=== PATIENT | male | born 1995 | race African-American/Black ===

== ENCOUNTER 2019-08-25 14:26 | Emergency (ER) | payer OTHER ==
[2019-08-25 14:32] VITALS: BP 154/98; PULSE 127; TEMP 98.2; BMI 37.5
--- NOTE | 2019-08-25 15:12 | PDOC ---
History of Present Illness - General Chief Complaint: Cold Symptoms Stated Complaint: FLU Time Seen by Provider: 08/25/19 15:03 - History of Present Illness Initial Comments: 08/25/19 15:11 24-year-old male with a past medical history of diabetes presents for flulike symptoms x2 days Past History - Past Medical History Allergies/Adverse Reactions: Allergies Allergy/AdvReac Type Severity Reaction Status Date / Time No Known Allergies Allergy Verified 08/25/19 14:30 CVA: No COPD: No CHF: No DVT: No - Immunization History Immunization Up to Date: No - Psycho Social/Smoking Cessation Hx Smoking History: Never smoked Information on smoking cessation initiated: No Hx Alcohol Use: No Drug/Substance Use Hx: No Review of Systems - Review of Systems Constitutional: Yes: Chills, Fever, Malaise, Night Sweats HEENTM: Yes: Nose Congestion Respiratory: Yes: Cough *Physical Exam - Vital Signs Last Vital Signs Temp Pulse Resp BP Pulse Ox 98.2 F 127 H 16 154/98 98 08/25/19 14:30 08/25/19 14:30 08/25/19 14:30 08/25/19 14:30 08/25/19 14:30 - Physical Exam 08/25/19 15:11 GENERAL: The patient is awake, alert, and fully oriented, in no acute distress. HEAD: Normal with no signs of trauma. EYES: sclera anicteric, conjunctiva clear. ENT: Ears normal tympanic membranes normal oropharynx clear uvula midline NECK: Normal range of motion LUNGS: Breath sounds equal, clear to auscultation bilaterally. No wheezes, and no crackles. HEART: S1 and S2 without murmur, rub or gallop. ABDOMEN: Soft, nontender, normoactive bowel sounds. No guarding, no rebound. No masses. EXTREMITIES: Normal range of motion, no edema. No clubbing or cyanosis. No cords, erythema, or tenderness. NEUROLOGICAL: Cranial nerves II through XII grossly intact. Normal speech, normal gait. PSYCH: Normal mood, normal affect. SKIN: Warm, Dry, normal turgor, no rashes or lesions noted. Medical Decision Making - Medical Decision Making 08/25/19 16:00 Influenza swab negative most likely viral upper respiratory infection supportive care follow-up with primary care physician. Discharge - Discharge Information Problems reviewed: Yes Clinical Impression/Diagnosis: Viral URI with cough Condition: Stable Disposition: HOME - Admission No - Follow up/Referral Referrals: Kya Eddy MD [Primary Care Provider] - - Patient Discharge Instructions Patient Printed Discharge Instructions: DI for Viral Upper Respiratory Infection -- Adult Additional Instructions: Tylenol Motrin for any fevers. Return to the emergency room for worsening symptoms. Without fail follow-up with your primary care physician in 2 to 3 days for further evaluation and treatment options. - Post Discharge Activity
== END 2019-08-25 16:11 | disposition home or self-care (01) ==
LOC: JERFT 14:26
DX: J06.9 Acute upper respiratory infection, unspecified (principal); B97.89 Other viral agents as the cause of diseases classified elsewhere; E11.9 Type 2 diabetes mellitus without complications
CPT/HCPCS: 87804; 99281-25

== ENCOUNTER 2024-06-05 13:42 | Emergency (ER) | payer BC, OTHER ==
[2024-06-05 13:49] VITALS: BMI 36.8
[2024-06-05] MEDS ORDERED: IBUPROFEN 400 MG TABLET (FP) PO ONE (14:07)
[2024-06-05] MEDS ORDERED: ACETAMINOPHEN 500 MG TABLET (FP) ONE (14:08)
[2024-06-05] MEDS: ACETAMINOPHEN 500 MG TABLET (FP) PO ONE (14:16)
[2024-06-05] MEDS: IBUPROFEN 400 MG TABLET (FP) PO ONE (14:17)
[2024-06-05 15:45] LABS: VENOUS BASE EXCESS 2.2 mmol/L (-2-2); VENOUS O2 SATURATION 51.1 % (70-80); VENOUS PCO2 50.5 mmHg (38-52); VENOUS PH 7.369 (7.310-7.410)
[2024-06-05 15:47] LABS: BASO % 0.5 % (0-2.0); EOS % 0.9 % (0-4.5); HEMATOCRIT 40.1 % (35.4-49); HEMOGLOBIN 13.4 GM/dL (11.7-16.9); MCH 25.7 pg (25.7-33.7); MCHC 33.3 g/dl (32.0-35.9); MEAN PLT VOLUME 9.9 fl (7.5-11.1); MONO % 10.3 % (3.8-10.2); NEUT % 76.3 % (42.8-82.8); PLATELET COUNT 152 10^3/uL (134-434); RDW 14.3 % (11.9-15.9); WHITE BLOOD COUNT 12.8 K/mm3 (4.0-10.0)
[2024-06-05] MEDS: LACTATED RINGERS SOLUTION 1000 ML INFUS.BAG IV ONE (16:03)
[2024-06-05 16:06] LABS: ALBUMIN 3.5 g/dl (3.4-5.0); BLOOD UREA NITROGEN 5.6 mg/dL (7-18)
[2024-06-05 16:09] LABS: CREATININE 1.1 mg/dL (0.55-1.3)
[2024-06-05 16:11] LABS: TOT PROT 7.5 g/dl (6.4-8.2)
[2024-06-05] MEDS ORDERED: CEPHALEXIN MONOHYDRATE 500 MG CAPSULE (UD) ONE (16:31)
[2024-06-05] MEDS ORDERED: SULFAMETHOXAZOLE/TRIMETHOPRIM 800MG/160MG D.S. TABLET ONE (16:31)
[2024-06-05] MEDS: CEPHALEXIN MONOHYDRATE 500 MG CAPSULE (UD) PO ONE (16:36)
[2024-06-05] MEDS: SULFAMETHOXAZOLE/TRIMETHOPRIM 800MG/160MG D.S. TABLET PO ONE (16:36)
[2024-06-05 17:22] VITALS: BP 123/80; PULSE 90; RESP 17; TEMP 98.5
== END 2024-06-05 18:08 | disposition home or self-care (01) ==
LOC: JER 13:42
DX: L03.312 Cellulitis of back [any part except buttock and flank] (principal); R50.9 Fever, unspecified; Z20.822 Contact with and (suspected) exposure to COVID-19
CPT/HCPCS: 0241U-QW; 36415; 76604; 80053; 82803; 85025; 99284-25

== ENCOUNTER 2024-06-07 09:40 | Emergency (ER) | payer BC ==
[2024-06-07 09:43] VITALS: BP 148/85; PULSE 102; RESP 18; TEMP 98.4; BMI 36.8
== END 2024-06-07 11:17 | disposition home or self-care (01) ==
LOC: JER 09:40
DX: L02.212 Cutaneous abscess of back [any part, except buttock and flank] (principal); L73.2 Hidradenitis suppurativa
CPT/HCPCS: 99283-25

== ENCOUNTER 2024-06-09 10:36 | Emergency (ER) | payer BC ==
[2024-06-09 12:26] VITALS: BP 127/88; PULSE 74; RESP 18; TEMP 98.4; BMI 36.8
== END 2024-06-09 11:29 | disposition home or self-care (01) ==
LOC: JERFT 10:36
DX: Z48.01 Encounter for change or removal of surgical wound dressing (principal)
CPT/HCPCS: 99281-25